=== PATIENT | female | born 1945 | race Caucasian/White ===

== ENCOUNTER 2017-06-28 06:21 | Emergency (ER) | payer OTHER ==
[2017-06-28 06:35] VITALS: RESP 16
[2017-06-28] MEDS ORDERED: OXYCODONE/APAP 5/325 TAB PO ONE (06:41)
--- NOTE | 2017-06-28 07:04 | EDPHY ---
H & P Stated Complaint: Mechanical fall, L fith finger pain, +deformity Time Seen by Provider: 06/28/17 06:43 HPI/ROS: CHIEF COMPLAINT: Finger injury HISTORY OF PRESENT ILLNESS: This is a healthy 71-year-old female that slipped on the ice this morning, injuring her left small finger. She notes that the finger is deformed. She is unable to move it. She did not strike her head or otherwise injure herself. REVIEW OF SYSTEMS: A ten point review of systems was performed and is negative with the exception of the items mentioned in the HPI. Past medical history: She is planning hip replacement next month. Social history: No tobacco use. General Appearance: Alert. Vital signs reviewed. Blood pressure 145/80. Eyes: Pupils equal and round, no conjunctival injection, no discharge. Anicteric. ENT, Mouth: Mucous membranes are moist, no oropharyngeal erythema or edema. Neck: No lymphadenopathy, supple. Respiratory: Lungs are clear to auscultation; no wheezes, rales, or rhonchi. Cardiovascular: Regular rate and rhythm; no murmur, rub, or gallop. Gastrointestinal: Abdomen is soft and nontender, no masses or organomegaly, bowel sounds normal. Skin: Warm and dry, no rashes on exposed skin, normal color. Back: Nontender to palpation over the thoracolumbar spine. No CVAT. Extremities: Left small finger is dislocated, angulated at the MCP joint. Sensation is intact to light touch over all digits the small finger. Pulses: 2+ radial pulse on the left. Neurological: Alert and oriented. Moving all four extremities easily and equally. Psychiatric: Normal affect. - Personal History Current Tetanus/Diphtheria Vaccine: Yes Current Tetanus Diphtheria and Acellular Pertussis (TDAP): Yes - Medical/Surgical History Hx Asthma: No Hx Chronic Respiratory Disease: No Hx Diabetes: No Hx Cardiac Disease: No Hx Renal Disease: No Hx Cirrhosis: No Hx Alcoholism: No Hx HIV/AIDS: No Hx Splenectomy or Spleen Trauma: No Other PMH: Ortho sx. - Social History Smoking Status: Former smoker Constitutional: Initial Vital Signs Temperature (C) 36.6 C 06/28/17 06:30 Heart Rate 69 06/28/17 06:30 Respiratory Rate 16 06/28/17 06:30 Blood Pressure 145/80 H 06/28/17 06:30 O2 Sat (%) 100 06/28/17 06:30 O2 Delivery Mode Room Air Allergies/Adverse Reactions: No Known Allergies Allergy (Unverified 04/13/10 11:17) Home Medications: Medication Instructions Recorded Effexor 04/13/10 Medical Decision Making Procedures: Digital block of the left small finger was placed using sterile technique. 1% lidocaine without epinephrine was used. Reduction: Indication: Displaced proximal phalanx fracture Using stabilization and traction, the angulated proximal fifth phalanx fracture was reduced by me. Patient tolerated procedure well. No complications. Good alignment on post reduction xray. Ulnar gutter orthoglass splint placed by ED orthotics prosthetics technician. I examined the patient post splint application--alignment appears anatomic, fourth and fifth digits flexed at MCP joint. Neurovascular status intact. ED Course/Re-evaluation: Fracture dislocation of proximal fifth phalanx, left hand. Displacement is radial and palmar. Digital block placed, fracture reduced, ulnar gutter splint applied. The patient has a physician through [facility]. I spoke with [facility] and follow up with appropriate specialist will be arranged. Differential Diagnosis: DDX includes but is not limited to fracture (open or closed), dislocation, sprain, strain, contusion. - Data Points Medications Given: Discontinued Medications Oxycodone/Acetaminophen (Percocet 5/325) 1 tab PO EDNOW ONE Stop: 06/28/17 06:42 Last Admin: 06/28/17 06:43 Dose: 1 tab Departure - Departure Disposition: Home, Routine, Self-Care Clinical Impression: Fracture of proximal phalanx of digit of left hand Qualifiers: Encounter type: initial encounter Fracture type: closed Qualified Code(s): S62.619A - Displaced fracture of proximal phalanx of unspecified finger, initial encounter for closed fracture Finger dislocation Qualifiers: Encounter type: initial encounter Qualified Code(s): S63.259A - Unspecified dislocation of unspecified finger, initial encounter Condition: Good Instructions: Finger Fracture (ED), Splint Care (ED), Finger Dislocation (ED) Additional Instructions: Adult Pain & Fever Control: We recommend Acetaminophen (Tylenol) and Ibuprofen (Motrin,Advil) for pain and fever control. When fever is high or pain severe, both drugs can be used at the same time, but at different intervals. Please note the time differences. Your dose is: Acetaminophen 650mg every 4 to 6 hours Ibuprofen 400mg every 8 hours with food OR Note: do not take Acetaminophen with Hydrocodone (Vicodin, Lortab) or Oycodone (Percocet). These medications also contain Acetaminophen. No more than 3000mg of Acetaminophen should be taken in 24 hours (for an adult). You received one Percocet in the emergency department. That pill contained 325 mg of tylenol plus 5 mg of oxycodone. Someone from [facility] should contact you today about follow-up. Let them know that you had a proximal phalanx left 5th digit fracture/dislocation. The dislocation has been reduced and splinted. Take the x-rays with you to your follow-up. Referrals: LAMBERTO HUERTAS [Other] - As per Instructions
[2017-06-28 08:12] VITALS: BP 135/85; PULSE 82; TEMP 98.6; O2SAT 96
== END 2017-06-28 08:16 | disposition home or self-care (01) ==
PROC: 0PSVXZZ Reposition Left Finger Phalanx, External Approach (ICD-10-PCS; principal; 2017-06-28)
DX: S62.619A Displaced fracture of proximal phalanx of unspecified finger, initial encounter for closed fracture (principal); S63.287A Dislocation of proximal interphalangeal joint of left little finger, initial encounter; Z87.891 Personal history of nicotine dependence; W00.0XXA Fall on same level due to ice and snow, initial encounter; Y99.8 Other external cause status